=== PATIENT | female | born 1960 ===

== ENCOUNTER → 2019-03-02 19:20 | Outpatient (REF) | payer OTHER, SELFPAY ==
[2019-03-02 20:16] LABS: Add Manual Diff / Slide Review NO; Basophils Absolute Auto 100 /uL (0-100); Basophils Percent Auto 1.1 % (0-2); Eosinophils Absolute Auto 200 /uL (0-450); Eosinophils Percent Auto 3.5 % (2-4); Hematocrit 36.8 % (36-46); Hemoglobin 12.6 g/dL (12.0-16.0); Lymphocytes Absolute Auto 2700 /uL (1100-4500); Lymphocytes Percent Auto 42.1 % (25-40); Mean Corpuscular HGB Conc 34.3 % (30-36); Mean Corpuscular Hemoglobin 33.4 PG (26-34); Mean Corpuscular Volume 97.3 fL (80-100); Monocytes Absolute Auto 600 /uL (0-900); Monocytes Percent Auto 9.5 % (3-14); Neutrophils Absolute Auto 2800 /uL (1500-7000); Neutrophils Percent Auto 43.8 % (50-75); Platelet Count 265 X10^3/uL (150-400); Red Blood Cell Count 3.79 X10^6/uL (4.0-5.2); Red Cell Distribution Width 12.7 % (11.6-14.8); White Blood Cell Count 6.4 X10^3/uL (4.5-11.0)
[2019-03-02 20:30] LABS: Erythrocyte Sedimentation Rate 8 MM/HR (0-20)
[2019-03-02 20:33] LABS: HEMOLYSIS 25 (0-50)
[2019-03-02 20:40] LABS: Alanine Aminotransferase 37 IU/L (9-52); Albumin 4.3 g/dL (3.5-5.0); Albumin Globulin Ratio 1.5 (1.0-2.8); Alkaline Phosphatase 142 U/L (38-126); Aspartate Aminotransferase 34 IU/L (14-36); Bilirubin Total 0.3 mg/dL (0.2-1.3); Blood Urea Nitrogen 12 mg/dL (7-17); Calcium 9.5 mg/dL (8.4-10.2); Carbon Dioxide 28 mmol/L (22-32); Chloride 103 mmol/L (98-107); Cholesterol 109 mg/dL (140-199); Creatine Kinase 89 U/L (30-135); Estimated Glomerular Filt Rate > 60.0 mL/min (>60); Globulin 2.8 g/dL (1.7-4.1); Glucose 91 mg/dL (70-100); HDL Cholesterol 38 mg/dL (40-60); LDL Cholesterol Calculated 53 mg/dL (<100); Potassium 4.7 mmol/L (3.4-5.1); Sodium 139 mmol/L (137-145); Total Protein 7.1 g/dL (6.3-8.2); Triglycerides 92 mg/dL (35-150)
[2019-03-02 21:18] LABS: Thyroid Stimulating Hormone 2.81 uIU/mL (0.47-4.68)
[2019-03-02 21:47] LABS: Vitamin B12 324 pg/mL (239-931)
== END ==
LOC: LAB 19:20
PROVIDERS: Visit Provider Family Medicine Geriatric Medicine
DX: E78.5 Hyperlipidemia, unspecified (principal); I63.9 Cerebral infarction, unspecified; R53.83 Other fatigue; I95.9 Hypotension, unspecified; R10.11 Right upper quadrant pain; R63.5 Abnormal weight gain; Z00.00 Encounter for general adult medical examination without abnormal findings
CPT/HCPCS: 36415; 80053; 80061; 82550; 82607; 84443; 85025; 85651